=== PATIENT | female | born 1970 | race Caucasian/White ===

== ENCOUNTER → 2018-01-14 | Outpatient (CLI) | payer OTHER | END | disposition home or self-care (01) | LOC: MAMMO 09:38 | DX: R92.8 Other abnormal and inconclusive findings on diagnostic imaging of breast (principal) | CPT/HCPCS: 76641; 77065; G0279 ==

== ENCOUNTER → 2018-10-23 | Outpatient (CLI) | payer BC, OTHER ==
[2016-01-11 18:59] VITALS: BP 160/90
--- NOTE | 2018-10-23 14:22 | RAD ---
DATE: 10/23/2018 EXAM: MAMMO MARIA ALEJANDRA JEEVAN OATESAT HISTORY: Follow-up left breast mammogram six-month. Patient is is due for right breast mammogram as well COMPARISON: Previous mammogram from 01/14/2018. This study was interpreted with the benefit of Computerized Aided Detection (CAD). FINDINGS: Breast Density: SCATTERED The breast parenchyma shows scattered fibroglandular densities. Breast parenchyma level B. The skin and nipples are within normal limits. No suspicious calcifications, spiculated mass or area of architectural distortion. IMPRESSION: No mammographic evidence of malignancy. Please see ultrasound report from the same day. BI-RADS CATEGORY: 3 PROBABLE BENIGN FINDING(S-SHORT INTERVAL FOLLOW-UP SUGGESTED RECOMMENDED FOLLOW-UP: 6M 6 MONTH FOLLOW-UP. Ultrasound of the left breast at 6 months recommended. PQRS compliance statement: Patient information was entered into a reminder system with a target due date for the next mammogram. Mammography is a sensitive method for finding small breast cancers, but it does not detect them all and is not a substitute for careful clinical examination. A negative mammogram does not negate a clinically suspicious finding and should not result in delay in biopsying a clinically suspicious abnormality. "Our facility is accredited by the [employer]."
--- NOTE | 2018-10-23 14:27 | RAD ---
Indication: Left breast lesion follow-up 6 month. Technique: Limited ultrasound of the left breast Comparison: 01/14/2018. Findings: At 12:00 position approximately 3 cm from the nipple there is a stable hypoechoic round mass measuring 0.3 x 0.2 x 0.3 cm, previously 0.1 x 0.1 x 1.7 cm. At 11:00:00 position approximately 3 cm from the nipple there is an oval-shaped hypoechoic nodule measuring 0.3 x 0.4 x 0.272, previously 0.5 x 0.2 x 0.3 cm. No new solid or cystic lesion seen. Impression: 1. Stable left breast lesions considering differences in measuring techniques. BI-RADS 3: Probably benign. At least one 6 month follow-up left breast ultrasound recommended.
== END | disposition home or self-care (01) ==
LOC: MAMMO 13:09
PROVIDERS: ATTEND Family Medicine
DX: N63.22 Unspecified lump in the left breast, upper inner quadrant (principal)
CPT/HCPCS: 76641; 77066; G0279; 77062

== ENCOUNTER → 2019-06-04 | Outpatient (CLI) | payer BC ==
[2016-01-11 18:59] VITALS: BP 160/90
--- NOTE | 2019-06-10 10:56 | RAD ---
DATE: 06/04/2019 1:12 PM EXAM: BREAST LEFT HISTORY: Six-month follow-up left breast lesions. COMPARISON: October 23, 2018 ultrasound and mammogram. Mammogram and ultrasound January 14, 2018. Real-time targeted ultrasound of the left breast. FINDINGS: Hypoechoic lesion within the left breast 11:00 position approximately 3 cm from the nipple measures 0.2 x 0.1 x 0.2 cm (slightly decreased compared to prior measurement of 0.25 cm). The lesion is overall similar compared to 2017 ultrasound. Additional lesion at the 12:00 position 3 submitters from the nipple previously described is decreased in size, likely fibrocystic changes. IMPRESSION: Left breast hypoechoic lesion, overall unchanged compared to 2017, likely complicated cyst. BI-RADS CATEGORY: 2 BENIGN FINDING(S) RECOMMENDED FOLLOW-UP: Return to annual screening mammogram. The patient would be due for bilateral screening mammograms October 2019. "Our facility is accredited by the [employer]." [email or web address]
== END | disposition home or self-care (01) ==
LOC: US 12:47
PROVIDERS: ATTEND Family Medicine
DX: N64.89 Other specified disorders of breast (principal)
CPT/HCPCS: 76641